=== PATIENT | female | born 1995 | race Caucasian/White ===

== ENCOUNTER 2017-01-01 09:07 | Emergency (ER) | payer MEDICAID ==
[2017-01-01 09:12] VITALS: BP 126/63; PULSE 102; RESP 16; TEMP 98.1
[2017-01-01 09:22] VITALS: O2SAT 98
--- NOTE | 2017-01-01 10:00 | ED PDOC ---
HPI: CCC, URI, Sore Throat Time Seen by Provider: 01/01/17 09:20 Chief Complaint (Nursing): ENT Problem Chief Complaint (Provider): Fever, cough History Per: Patient History/Exam Limitations: no limitations Onset/Duration Of Symptoms: Days (x 1 week) Current Symptoms Are (Timing): Still Present Associated Symptoms: Fever, Chills, Sore Throat, Cough, Nasal Congestion Additional Complaint(s): Cat is a 21 y/o female who presents to the ED complaining of fever with associated cough, sore throat, and nasal discharge for the past week. Seen by PMD 2-3 days ago, where she received an unknown injection, and was given prescriptions for Mucinex and Ibuprofen. Last took Ibuprofen yesterday. She does report having pain on swallowing. PMD: Provider [facility] Past Medical History Reviewed: Historical Data, Nursing Documentation, Vital Signs Vital Signs: Last Vital Signs Temp 98.1 F 01/01/17 09:11 Pulse 102 H 01/01/17 09:11 Resp 16 01/01/17 09:11 BP 126/63 01/01/17 09:11 Pulse Ox 98 01/01/17 13:13 - Medical History Other PMH: Thyroid abnormality - Surgical History Surgical History: No Surg Hx - Family History Family History: States: Unknown Family Hx - Social History Current smoker - smoking cessation education provided: No Alcohol: None Drugs: Denies - Home Medications Home Medications: Ambulatory Orders Medication Instructions Recorded Acetaminophen/Butalbital/Caf 1 tab PO Q8 PRN #20 tab 09/22/14 [Fioricet] Azithromycin [Zithromax Z-Jonathan] 250 mg PO DAILY #1 packet 09/22/14 Azithromycin [Zithromax] 250 mg PO DAILY #4 tab 01/01/17 Naproxen [Naprosyn] 500 mg PO BID PRN #15 tablet 01/01/17 - Allergies Allergies/Adverse Reactions: Allergies Allergy/AdvReac Type Severity Reaction Status Date / Time No Known Allergies Allergy Verified 01/01/17 09:18 Review of Systems ROS Statement: Except As Marked, All Systems Reviewed And Found Negative Constitutional: Positive for: Fever ENT: Positive for: Nose Discharge, Throat Pain (with swallowing) Respiratory: Positive for: Cough Physical Exam - Reviewed Nursing Documentation Reviewed: Yes Vital Signs Reviewed: Yes - Physical Exam Appears: Positive for: Non-toxic, No Acute Distress Head Exam: Positive for: ATRAUMATIC, NORMAL INSPECTION, NORMOCEPHALIC Skin: Positive for: Normal Color, Warm, Dry Eye Exam: Positive for: EOMI, Normal appearance, PERRL ENT: Positive for: Normal ENT Inspection, TM Is/Are (normal bilaterally). Negative for: Pharyngeal Erythema, Tonsillar Exudate Neck: Positive for: Normal, Painless ROM, Supple Cardiovascular/Chest: Positive for: Regular Rate, Rhythm. Negative for: Murmur Respiratory: Positive for: Normal Breath Sounds. Negative for: Accessory Muscle Use, Respiratory Distress Gastrointestinal/Abdominal: Positive for: Normal Exam, Soft. Negative for: Tenderness, Distended Back: Positive for: Normal Inspection. Negative for: L CVA Tenderness, R CVA Tenderness, Vertebral Tenderness Extremity: Positive for: Normal ROM. Negative for: Pedal Edema, Deformity Neurologic/Psych: Positive for: Alert, Oriented. Negative for: Motor/Sensory Deficits - ECG O2 Sat by Pulse Oximetry: 98 (RA) Pulse Ox Interpretation: Normal Medical Decision Making Medical Decision Making: Time: 9:44 Initial Plan: --Rapid strep test --Pending reevaluation --Serology negative for strep Time: 12:16 --Toradol 30 mg IM --Zithromax 500 mg PO Time: 12:44 Clinical Impression: URI Upon provider reevaluation patient is medically stable, and requires no further treatment in the ED at this time. Patient will be discharged with Rx for Zithromax and Naprosyn. Counseling was provided and all questions were answered regarding diagnosis and need for follow up with PMD in 2 days. There is agreement to discharge plan. Return if symptoms persist or worsen. Scribe Attestation: Documented by Aleena Alba, acting as a scribe for Libby Feliz MD Provider Scribe Attestation: All medical record entries made by the Scribe were at my direction and personally dictated by me. I have reviewed the chart and agree that the record accurately reflects my personal performance of the history, physical exam, medical decision making, and the department course for this patient. I have also personally directed, reviewed, and agree with the discharge instructions and disposition. Disposition - Clinical Impression Clinical Impression: URI (upper respiratory infection) - Patient ED Disposition Is Patient to be Admitted: No Counseled Patient/Family Regarding: Studies Performed, Diagnosis, Need For Followup, Rx Given - Disposition Disposition: Routine/Home Disposition Time: 12:44 Condition: STABLE Additional Instructions: FOLLOW-UP WITH YOUR PMD WITHIN 2 DAYS FOR REEVALUATION. Prescriptions: Azithromycin [Zithromax] 250 mg PO DAILY #4 tab Naproxen [Naprosyn] 500 mg PO BID PRN #15 tablet PRN Reason: Pain, Moderate (4-7) Instructions: Upper Respiratory Infection (ED) Forms: [employer] (K[place]z)
== END 2017-01-01 13:17 | disposition home or self-care (01) ==
LOC: H.ER 09:07
DX: J06.9 Acute upper respiratory infection, unspecified (principal)
CPT/HCPCS: 81025; 87070; 87430; 96372; 99282; J1885